=== PATIENT | female | born 1985 | race Caucasian/White ===

== ENCOUNTER 2017-08-21 16:29 | Outpatient (CLI) | payer BC, MEDICAID ==
[2017-08-21 18:09] LABS: ADD UMIC NO; UR ASCORBIC ACID NEGATIVE (NEGATIVE); UR BILIRUBIN (Dip) NEGATIVE (NEGATIVE); UR BLOOD (Dip) NEGATIVE (NEGATIVE); UR CLARITY CLEAR (CLEAR); UR COLOR STRAW (YELLOW); UR GLUCOSE (Dip) NEGATIVE (NEGATIVE); UR KETONES (Dip) NEGATIVE (NEGATIVE); UR LEUKOCYTE ESTERASE (Dip) NEGATIVE Leu/ul (NEGATIVE); UR NITRITE (Dip) NEGATIVE (NEGATIVE); UR SPECIFIC GRAVITY (Dip) 1.005 (1.003-1.030); UR TOTAL PROTEIN (Dip) NEGATIVE (NEGATIVE); UR UROBILINOGEN (Dip) NEGATIVE (NEGATIVE)
== END 2017-08-21 18:25 | disposition home or self-care (01) ==
LOC: OBT 16:29 → L-D 16:31 → OBT 18:25
DX: O62.9 Abnormality of forces of labor, unspecified (principal); Z3A.27 27 weeks gestation of pregnancy
CPT/HCPCS: 76817; 81003

== ENCOUNTER 2017-10-03 05:47 | Inpatient (IN) | payer BC, MEDICAID ==
[2017-10-03 07:28] LABS: RUPTURE FETAL MEMBRANES POSITIVE (NEGATIVE)
[2017-10-03] MEDS: PRENATAL VITAMIN PO ×2 (09:00→17:57)
[2017-10-03] MEDS: MAGNESIUM SULFATE 4 GM/100 ML 100 ML IV (09:19)
[2017-10-03] MEDS: BETAMET NA PHOS/AC(6 MG/ML) 5ML INJ IM (09:23)
[2017-10-03] MEDS: AMPICILLIN 2 GM/NS (PMX) 100 ML IV ×4 (09:29→21:16)
[2017-10-03] MEDS: MAGNESIUM SULFATE 20 GM/500 ML 500 ML IV ×2 (09:49→18:25)
[2017-10-03] MEDS: AZITHROMYCIN 500MG/NS (PMX) 250 ML IVPB (10:38)
[2017-10-03] MEDS: LACTATED RINGER'S 1,000 ML IV ×2 (10:46→18:26)
[2017-10-03 12:22] LABS: ADD MAN DIFF? NO
[2017-10-03 12:24] LABS: BASOPHILS % 0.3 % (0.0-2.0); EOSINOPHILS # 0.1 10^3/ul (0.0-0.5); HEMATOCRIT 36.7 % (37.0-47.0); HEMOGLOBIN 11.5 g/dl (12.0-16.0); LYMPHOCYTES # 1.2 10^3/ul (0.8-2.9); LYMPHOCYTES % 13.1 % (15.0-51.0); MEAN CORPUSCULAR HEMOGLOBIN 25.4 pg (29.0-33.0); MEAN CORPUSCULAR HGB CONC 31.3 g/dl (32.0-37.0); MEAN PLATELET VOLUME 10.6 fl (7.4-10.4); MONOCYTE # 0.3 10^3/ul (0.3-0.9); MONOCYTES % 2.9 % (0.0-11.0); NEUTROPHIL # 7.4 10^3/ul (1.6-7.5); NEUTROPHILS % 81.6 % (39.0-77.0); PLATELET COUNT 302 10^3/UL (140-415); RED BLOOD COUNT 4.53 10^6/ul (4.20-5.40); RED CELL DISTRIBUTION WIDTH 14.2 % (11.5-14.5)
[2017-10-03 12:24] LABS: WHITE BLOOD COUNT 9.1 10^3/ul (4.8-10.8)
[2017-10-03 12:52] LABS: ALANINE AMINOTRANSFERASE 27 IU/L (13-69); ALBUMIN 3.5 g/dl (3.3-4.9); ALBUMIN/GLOBULIN RATIO 1.09; ALKALINE PHOSPHATASE 377 IU/L (42-121); ANION GAP 12 (8-16); ASPARTATE AMINO TRANSFERASE 40 IU/L (15-46); BLOOD UREA NITROGEN 8 mg/dl (7-20); CALCIUM 8.4 mg/dl (8.4-10.2); CARBON DIOXIDE 22 mmol/L (21-31); CHLORIDE 110 mmol/L (97-110); GLUCOSE 139 mg/dl (70-220); POTASSIUM 4.4 mmol/L (3.5-5.1); SODIUM 140 mmol/L (135-144); TOTAL PROTEIN 6.7 g/dl (6.1-8.1)
[2017-10-03 12:55] LABS: MAGNESIUM 4.4 mg/dl (1.7-2.5)
[2017-10-03 13:45] LABS: HEPATITIS B SURFACE ANTIBODY NEGATIVE (NEGATIVE)
[2017-10-03] MEDS ORDERED: AZITHROMYCIN 250 MG in SOD CHLORIDE 0.9% 250 ML IVPB (15:00)
[2017-10-03 15:19] LABS: RAPID PLASMA REAGIN NONREACTIVE (NR)
[2017-10-04 01:43] LABS: MAGNESIUM 5.7 mg/dl (1.7-2.5)
[2017-10-04] MEDS: AMPICILLIN 2 GM/NS (PMX) 100 ML IV ×4 (03:12→20:49)
[2017-10-04] MEDS: MAGNESIUM SULFATE 20 GM/500 ML 500 ML IV ×2 (06:29→16:10)
[2017-10-04 08:17] LABS: MAGNESIUM 5.2 mg/dl (1.7-2.5)
[2017-10-04] MEDS: ACETAMINOPHEN 325 MG TAB PO ×2 (08:22→20:32)
[2017-10-04] MEDS: LACTATED RINGER'S 1,000 ML IV (08:25)
[2017-10-04] MEDS: BETAMET NA PHOS/AC(6 MG/ML) 5ML INJ IM (09:37)
[2017-10-04] MEDS: AZITHROMYCIN 250 MG in SOD CHLORIDE 0.9% 250 ML IVPB (09:57)
[2017-10-04] MEDS: PRENATAL VITAMIN PO (10:02)
[2017-10-04] MEDS ORDERED: ONDANSETRON 4 MG INJ IV (11:30)
[2017-10-04] MEDS: AL HYDROX/MG HYDROX/SIMETH 30 ML CUP PO ×2 (11:54→18:54)
[2017-10-04 12:57] LABS: MAGNESIUM 5.5 mg/dl (1.7-2.5)
[2017-10-04 18:38] LABS: MAGNESIUM 5.5 mg/dl (1.7-2.5)
[2017-10-05 02:07] LABS: MAGNESIUM 5.9 mg/dl (1.7-2.5)
[2017-10-05] MEDS: LACTATED RINGER'S 1,000 ML IV ×2 (02:36→17:12)
[2017-10-05] MEDS: MAGNESIUM SULFATE 20 GM/500 ML 500 ML IV (02:39)
[2017-10-05] MEDS: AMPICILLIN 2 GM/NS (PMX) 100 ML IV ×4 (02:43→21:44)
[2017-10-05 06:42] LABS: MAGNESIUM 6.2 mg/dl (1.7-2.5)
[2017-10-05] MEDS: ACETAMINOPHEN 325 MG TAB PO ×2 (07:43→14:36)
[2017-10-05] MEDS: PRENATAL VITAMIN PO (09:05)
[2017-10-05] MEDS: AZITHROMYCIN 250 MG in SOD CHLORIDE 0.9% 250 ML IVPB (10:53)
[2017-10-05] MEDS: AL HYDROX/MG HYDROX/SIMETH 30 ML CUP PO (17:11)
[2017-10-05] MEDS: HYDROCODONE/APAP (5/325) TAB PO (23:18)
[2017-10-05] MEDS: ALBUTEROL/IPRATROPIUM (NEB) 3 ML AMP HHN (23:23)
[2017-10-06] MEDS: ALBUTEROL/IPRATROPIUM (NEB) 3 ML AMP HHN (04:26)
[2017-10-06] MEDS: BUTORPHANOL 2 MG INJ IV ×2 (04:45→09:38)
[2017-10-06] MEDS: AMOXICILLIN 250 MG CAP PO (05:22)
[2017-10-06] MEDS: LACTATED RINGER'S 1,000 ML IV ×3 (05:23→12:54)
[2017-10-06] MEDS ORDERED: ERYTHROMYCIN BASE (EC) 250 MG TAB PO (09:00)
[2017-10-06] MEDS: ERYTHROMYCIN ETHYL SUCC (80 MG/ML PO SYG) PO (09:33)
[2017-10-06] MEDS ORDERED: LIDOCAINE 1% (MPF) 30 ML INJ INJ (12:00)
[2017-10-06] MEDS ORDERED: CARBOPROST 250 MCG INJ IM ×2 (12:00→17:30)
[2017-10-06] MEDS ORDERED: IBUPROFEN 600 MG TAB PO (12:00)
[2017-10-06] MEDS ORDERED: METHYLERGONOVINE 0.2 MG INJ IM ×2 (12:00→17:30)
[2017-10-06] MEDS ORDERED: MISOPROSTOL 200 MCG TAB PR ×2 (12:00→17:30)
[2017-10-06] MEDS ORDERED: OXYTOCIN 30 UNITS/LR 500 ML IV ×2 (12:00→17:30)
[2017-10-06 13:19] LABS: ADD MAN DIFF? NO
[2017-10-06 13:23] LABS: WHITE BLOOD COUNT 12.4 10^3/ul (4.8-10.8)
[2017-10-06 13:23] LABS: BASOPHILS % 0.2 % (0.0-2.0); EOSINOPHILS % 0.2 % (0.0-7.0); HEMATOCRIT 35.3 % (37.0-47.0); HEMOGLOBIN 10.9 g/dl (12.0-16.0); LYMPHOCYTES # 1.3 10^3/ul (0.8-2.9); LYMPHOCYTES % 10.5 % (15.0-51.0); MEAN CORPUSCULAR HEMOGLOBIN 25.1 pg (29.0-33.0); MEAN CORPUSCULAR HGB CONC 30.9 g/dl (32.0-37.0); MEAN CORPUSCULAR VOLUME 81.3 fl (82.0-101.0); MEAN PLATELET VOLUME 10.4 fl (7.4-10.4); MONOCYTE # 0.8 10^3/ul (0.3-0.9); MONOCYTES % 6.4 % (0.0-11.0); NEUTROPHIL # 10.1 10^3/ul (1.6-7.5); NEUTROPHILS % 81.2 % (39.0-77.0); NUCLEATED RED BLOOD CELLS # 0.1 10^3/ul (0.0-0.0); NUCLEATED RED BLOOD CELLS% 0.4 /100WBC (0.0-0.0); PLATELET COUNT 272 10^3/UL (140-415); RED BLOOD COUNT 4.34 10^6/ul (4.20-5.40); RED CELL DISTRIBUTION WIDTH 14.4 % (11.5-14.5)
[2017-10-06 13:41] LABS: INR 0.93; PROTIME 12.5 Sec (11.9-14.9)
[2017-10-06 13:42] LABS: PARTIAL THROMBOPLASTIN TIME 24.7 Sec (25.0-35.0)
[2017-10-06] MEDS: OXYTOCIN 30 UNITS/LR 500 ML IV ×2 (14:35→15:08)
[2017-10-06] MEDS: OXYCODONE/ASPIRIN (4.88/325) TAB PO ×2 (14:36→20:10)
[2017-10-06] MEDS: AZITHROMYCIN 250 MG in SOD CHLORIDE 0.9% 250 ML IVPB (15:00)
[2017-10-06] MEDS ORDERED: AMPICILLIN 1 GM/NS (PMX) 50 ML IVPB (17:00)
[2017-10-06] MEDS ORDERED: LANOLIN 7 GM TUBE TOP (17:30)
[2017-10-06] MEDS ORDERED: ZOLPIDEM 5 MG TAB PO (17:30)
[2017-10-06] MEDS: IBUPROFEN 600 MG TAB PO (18:16)
[2017-10-06] MEDS: SENNA/DOCUSATE NA (8.6MG/50MG) TAB PO (21:25)
[2017-10-07] MEDS: IBUPROFEN 600 MG TAB PO ×5 (00:03→23:45)
[2017-10-07] MEDS: BENZOCAINE 20% 56 ML SPRAY TOP (01:46)
[2017-10-07] MEDS: WITCH HAZEL/GLYCERIN PAD PR (01:46)
[2017-10-07 07:48] LABS: ADD MAN DIFF? NO
[2017-10-07 07:54] LABS: BASOPHILS % 0.3 % (0.0-2.0); EOSINOPHILS # 0.1 10^3/ul (0.0-0.5); EOSINOPHILS % 1.1 % (0.0-7.0); HEMATOCRIT 30.6 % (37.0-47.0); HEMOGLOBIN 9.7 g/dl (12.0-16.0); LYMPHOCYTES % 19.7 % (15.0-51.0); MEAN CORPUSCULAR HEMOGLOBIN 25.7 pg (29.0-33.0); MEAN CORPUSCULAR HGB CONC 31.7 g/dl (32.0-37.0); MEAN PLATELET VOLUME 10.5 fl (7.4-10.4); MONOCYTE # 0.5 10^3/ul (0.3-0.9); MONOCYTES % 4.6 % (0.0-11.0); NEUTROPHIL # 7.4 10^3/ul (1.6-7.5); NEUTROPHILS % 72.7 % (39.0-77.0); NUCLEATED RED BLOOD CELLS # 0.1 10^3/ul (0.0-0.0); NUCLEATED RED BLOOD CELLS% 0.8 /100WBC (0.0-0.0); PLATELET COUNT 281 10^3/UL (140-415); RED BLOOD COUNT 3.78 10^6/ul (4.20-5.40); RED CELL DISTRIBUTION WIDTH 14.5 % (11.5-14.5)
[2017-10-07 07:54] LABS: WHITE BLOOD COUNT 10.2 10^3/ul (4.8-10.8)
[2017-10-07] MEDS: SENNA/DOCUSATE NA (8.6MG/50MG) TAB PO ×2 (09:37→21:30)
[2017-10-07] MEDS: OXYCODONE/ASPIRIN (4.88/325) TAB PO ×2 (09:40→15:08)
[2017-10-08] MEDS: IBUPROFEN 600 MG TAB PO ×2 (05:32→12:16)
[2017-10-08] MEDS: OXYCODONE/ASPIRIN (4.88/325) TAB PO (07:29)
[2017-10-08] MEDS: SENNA/DOCUSATE NA (8.6MG/50MG) TAB PO (08:33)
[2017-10-08] MEDS: DIPHTH/TET/ACEL PERTUSS (ADULT) 0.5 ML VIAL IM* (08:39)
== END 2017-10-08 15:05 | disposition home or self-care (01) | DRG 775 ==
LOC: OBT 05:47 → L-D 05:47 → OBT 08:00 → PP1 10-06 17:00 → L-D 08:00
PROVIDERS: Obstetrics & Gynecology
PROC: 10E0XZZ Delivery of Products of Conception, External Approach (ICD-10-PCS; principal; 2017-10-06)
DX: O60.14X0 Preterm labor third trimester with preterm delivery third trimester, not applicable or unspecified (principal); O99.52 Diseases of the respiratory system complicating childbirth; J45.909 Unspecified asthma, uncomplicated; Z3A.33 33 weeks gestation of pregnancy; Z37.0 Single live birth
CPT/HCPCS: 76815; 76818; 80053; 83735; 84112; 85025; 85610; 85730; 86592; 86706; 86850; 86900; 86901; 87081; 88307; 93005; 94640; 94664; 99464